=== PATIENT | female | born 1995 | race African-American/Black ===

== ENCOUNTER 2017-03-16 01:43 | Emergency (ER) | payer OTHER ==
--- NOTE | 2017-03-16 02:11 | PDOC ---
History of Present Illness - History of Present Illness Initial Comments: 03/16/17 02:48 The patient is a 21 year old female, with a significant past medical history of psychophrenia who presents to the emergency department with 3 day history of insomnia, restlessness, and neck stiffness. The patient denies chest pain, shortness of breath, headache and dizziness. Denies fever, chills, nausea, vomit, diarrhea and constipation. Denies dysuria, frequency, urgency and hematuria. Allergies: NKDA Past surgical history: Denies Social history: Denies 03/16/17 02:48 <Rodo Mace - Last Filed: 03/16/17 02:55> <Nicole Rocha - Last Filed: 03/16/17 19:52> - General Chief Complaint: Head/Neck problem Stated Complaint: STIFFNESS OF NECK/TREMORS Time Seen by Provider: 03/16/17 01:54 Past History - Past Medical History Psychiatric Problems: Yes - Immunization History Immunization Up to Date: No - Psycho/Social/Smoking Cessation Hx Anxiety: No Suicidal Ideation: No Smoking History: Never smoked Have you smoked in the past 12 months: No Hx Alcohol Use: No Substance Use Type: None <Rodo Mace - Last Filed: 03/16/17 02:55> <Nicole Rocha - Last Filed: 03/16/17 19:52> - Past Medical History Allergies/Adverse Reactions: Allergies Allergy/AdvReac Type Severity Reaction Status Date / Time No Known Allergies Allergy Verified 03/16/17 01:50 Home Medications: Ambulatory Orders Haloperidol [Haldol -] 10 mg PO DAILY 03/16/17 Review of Systems - Review of Systems Comments:: 03/16/17 02:48 GENERAL/CONSTITUTIONAL: +Insomnia for 3 days with generalized stiffness. Minimally responsive. No fever or chills. No weakness. HEAD, EYES, EARS, NOSE AND THROAT: No change in vision. No ear pain or discharge. No sore throat. CARDIOVASCULAR: No chest pain or shortness of breath RESPIRATORY: No cough, wheezing, or hemoptysis. GASTROINTESTINAL: No nausea, vomiting, diarrhea or constipation. GENITOURINARY: No dysuria, frequency, or change in urination. MUSCULOSKELETAL: No joint or muscle swelling or pain. No neck or back pain. SKIN: No rash NEUROLOGIC: No headache, vertigo, loss of consciousness, or change in strength/ sensation. ENDOCRINE: No increased thirst. No abnormal weight change HEMATOLOGIC/LYMPHATIC: No anemia, easy bleeding, or history of blood clots. ALLERGIC/IMMUNOLOGIC: No hives or skin allergy. 03/16/17 02:49 <Rodo Mace - Last Filed: 03/16/17 02:55> *Physical Exam - Vital Signs Last Vital Signs Temp Pulse Resp BP Pulse Ox 98 F 82 18 111/70 99 03/16/17 01:47 03/16/17 01:47 03/16/17 01:47 03/16/17 01:47 03/16/17 01:47 - Physical Exam Comments: 03/16/17 02:48 GENERAL: +Flat affect. Some trembling of extremities. Awake, alert, and fully oriented, in no acute distress HEAD: No signs of trauma, normocephalic, atraumatic EYES: PERRLA, EOMI, sclera anicteric, conjunctiva clear ENT: Auricles normal inspection, hearing grossly normal, nares patent, oropharynx clear without exudates. Moist mucosa NECK: +Stiffness noted. Normal ROM, supple, no lymphadenopathy, JVD, or masses LUNGS: No distress, speaks full sentences, clear to auscultation bilaterally HEART: Regular rate and rhythm, normal S1 and S2, no murmurs, rubs or gallops, peripheral pulses normal and equal bilaterally. ABDOMEN: Soft, nontender, normoactive bowel sounds. No guarding, no rebound. No masses EXTREMITIES: Normal inspection, Normal range of motion, no edema. No clubbing or cyanosis. NEUROLOGICAL: Cranial nerves II through XII grossly intact. Normal speech, normal gait, no focal sensorimotor deficits SKIN: Warm, Dry, normal turgor, no rashes or lesions noted. 03/16/17 02:50 <Rodo Mace - Last Filed: 03/16/17 02:55> - Vital Signs Last Vital Signs Temp Pulse Resp BP Pulse Ox 98 F 82 18 111/70 99 03/16/17 01:47 03/16/17 01:47 03/16/17 01:47 03/16/17 01:47 03/16/17 01:47 <Nicole Rocha - Last Filed: 03/16/17 19:52> ED Treatment Course - Medications Given in the ED: ED Medications Discontinued Medications Generic Name Dose Route Start Last Admin Trade Name Valentin PRN Reason Stop Dose Admin Benztropine Mesylate 1 mg 03/16/17 02:18 03/16/17 02:45 Cogentin - PO 03/16/17 02:19 1 mg ONCE ONE Administration Diphenhydramine HCl 25 mg 03/16/17 02:18 03/16/17 02:45 Benadryl - PO 03/16/17 02:19 25 mg ONCE ONE Administration Diphenhydramine HCl 25 mg 03/16/17 02:35 03/16/17 02:45 Benadryl - PO 03/16/17 02:36 25 mg ONCE ONE Administration <Nicole Rocha - Last Filed: 03/16/17 19:52> Medical Decision Making - Medical Decision Making 03/16/17 02:51 Patient presents with classical symptoms of haloperidol side effects of restlessness, insomnia, and stiffness. Given benadryl 50mg and cogentin 1mg for relief as well as home prescription for 50mg benadryl daily. Suggested to take 1 /2 current dose of haloperidol and follow-up with psychiatrist. <Rodo Mace - Last Filed: 03/16/17 02:55> - Medical Decision Making 03/16/17 19:48 Pt comes with dystonic reaction due to 10mg haldol that she was recently started on at [facility]; pt has no psychiatrist to follow her. She has no other complaints. Mom is concerned that her daughter is not sleeping and that she is not her usual vibrant self and feels that the high dose of haldol is causing personality change. Pt will be treated with cogentin and benadryl for the dystonia and mom was asked to adjust the dose of haldol and get a psychiatrist by calling insurance and making an appointment or by visiting a clinic. Pt is stable for discharge. Exam normal. vitals normal. No psychosis, voiolence or suicidal ideations. She is calm and stable and awake and alert. <Nicole Rocha - Last Filed: 03/16/17 19:52> *DC/Admit/Observation/Transfer - Attestations Physician Attestion: 03/16/17 02:45 I, Dr. Rodo Mace, attest that this document has been prepared under my direction and personally reviewed by me in its entirety. I further attest, that it accurately reflects all work, treatment, procedures and medical decision -making performed by me. <Rodo Mace - Last Filed: 03/16/17 02:55> <Nicole Rocha - Last Filed: 03/16/17 19:52> Diagnosis at time of Disposition: Insomnia Qualifiers: Insomnia type: drug-induced Qualified Code(s): F19.982 - Other psychoactive substance use, unspecified with psychoactive substance-induced sleep disorder Drug reaction Qualifiers: Encounter type: initial encounter Qualified Code(s): T88.7XXA - Unspecified adverse effect of drug or medicament, initial encounter - Discharge Dispostion Disposition: HOME - Referrals Referrals: Sarina Lomax MD [Staff Physician] - - Patient Instructions Additional Instructions: Please return to ER if any exacerbation of symptoms.
[2017-03-16] MEDS ORDERED: BENZTROPINE MESYLATE 1 MG TABLET (FP) PO ONE (02:18)
[2017-03-16] MEDS ORDERED: diphenhydrAMINE HCL 25 MG CAPSULE (FP) PO ONE ×3 (02:18→02:37)
[2017-03-16 02:56] VITALS: BP 111/70; PULSE 82; TEMP 98; BMI 31.1
== END 2017-03-16 03:00 | disposition home or self-care (01) ==
LOC: JER 01:43
DX: G47.00 Insomnia, unspecified (principal); M43.6 Torticollis; R46.1 Bizarre personal appearance; T43.4X5A Adverse effect of butyrophenone and thiothixene neuroleptics, initial encounter; Y92.039 Unspecified place in apartment as the place of occurrence of the external cause
CPT/HCPCS: 99283-25

== ENCOUNTER 2017-03-24 15:13 | Emergency (ER) | payer OTHER ==
[2017-03-24 15:20] VITALS: BP 141/74; PULSE 77; TEMP 98.5; BMI 30.2
[2017-03-24] MEDS ORDERED: LORazepam 1 MG TABLET PO ONE (16:55)
[2017-03-24] MEDS ORDERED: LORazepam 0.5 MG TABLET ONE (16:59)
--- NOTE | 2017-03-24 17:01 | PDOC ---
History of Present Illness - General Chief Complaint: Psychiatric Stated Complaint: RX REFILL Time Seen by Provider: 03/24/17 15:49 History Source: Patient Exam Limitations: No Limitations - History of Present Illness Initial Comments: My chief complaint: Extreme restlessness and anxiety History of present illness: She is a 21-year-old female with a history of paranoid schizophrenia today with her mother due to patient having restlessness and anxiety. Patient had been hospitalized according to mother 2 weeks ago at [facility] and has a diagnosis of paranoid Schizophrenia and had received an injection of Haldol Decanoate, patient was seen at [facility] on 03/17/2017 due to symptoms EPS by Dr. Javed Howard and was given a prescription for Cogentin 1 mg daily and diphenhydramine 50 mg hours sleep and lorazepam 1 mg twice a day for 5 days. Patient ran out of lorazepam 2 days ago and has become extremely restless and anxious. Patient no longer has any rigidity of extremities or any tremors. Pt. denies any auditory or visual hallucinations. patient denies that she wants to hurt herself or anyone else. Patient and mother deny the patient has been aggressive or agitated just restless and anxious. She denies any suicide attempts. Patient just kept saying "I can't stand feeling this way". Patient denies feeling that anyone is out to get her or that she is getting any messages from any TV or anything. Denies any chance of . Denies rigidity. Has been able to sleep. Timing/Duration: getting worse (for 2 days) Severity: moderate Associated Symptoms: anxiety (with restlessness) Past History - Past Medical History Allergies/Adverse Reactions: Allergies No Known Allergies Allergy (Verified 03/24/17 15:17) Home Medications: Ambulatory Orders Haloperidol [Haldol -] 10 mg PO DAILY 03/16/17 Lorazepam [Ativan] 1 mg PO BID PRN #5 tablet MDD 2 mg 03/24/17 Psychosocial History: Yes: schizophrenia (paranoid ) - Immunization History Immunization Up to Date: Yes - Social History Smoking Status: Never smoked *Review of Systems - Review of Systems Able to Perform ROS?: Yes Constitutional: No: Symptoms Reported HEENTM: No: Symptoms Reported Respiratory: No: Symptoms reported Cardiac (ROS): No: Symptoms Reported ABD/GI: No: Symptoms Reported : No: Symptoms Reported Musculoskeletal: No: Symptoms Reported Integumentary: No: Symptoms Reported Neurological: Yes: Other (restlessness, akathesia ) Psychiatric: Yes: Anxiety, Other (restlessness) *Physical Exam - Vital Signs Last Vital Signs Temp Pulse Resp BP Pulse Ox 98.5 F 77 16 141/74 99 03/24/17 15:17 03/24/17 15:17 03/24/17 15:17 03/24/17 15:17 03/24/17 15:17 - Physical Exam General Appearance: Yes: Appropriately Dressed HEENT: positive: EOMI, CHANDNI Respiratory/Chest: positive: Lungs Clear, Normal Breath Sounds. negative: Chest Tender, Respiratory Distress Cardiovascular: positive: Regular Rhythm, Regular Rate, S1, S2 Musculoskeletal: positive: Normal Inspection Extremity: positive: Normal Capillary Refill, Normal Inspection, Normal Range of Motion, Other (no rigidity all extremities) Integumentary: positive: Normal Color, Swelling Neurologic: positive: Fully Oriented, Alert, Normal Response, Respond to painful stimul, Responsive, Finger to Nose, Other. negative: Numbness, Sensory Deficit Plan - Critical Care Time Comments: 03/24/17 17:27 She is a 21-year-old female with a history of paranoid schizophrenia today with her mother due to patient having restlessness and anxiety. Patient had been hospitalized according to mother 2 weeks ago at [facility] and has a diagnosis of paranoid Schizophrenia and had received an injection of Haldol Decanoate, patient was seen at [facility] on 03/17/2017 due to symptoms EPS by Dr. Javed Howard and was given a prescription for Cogentin 1 mg daily and diphenhydramine 50 mg hours sleep and lorazepam 1 mg twice a day for 5 days. Patient ran out of lorazepam 2 days ago and has become extremely restless and anxious. Patient no longer has any rigidity of extremities or any tremors. Pt. denies any auditory or visual hallucinations. patient denies that she wants to hurt herself or anyone else. Patient and mother deny the patient has been aggressive or agitated just restless and anxious. She denies any suicide attempts. Patient just kept saying "I can't stand feeling this way". Patient denies feeling that anyone is out to get her or that she is getting any messages from any TV or anything. Akathesia anxiety PLAN: She went to continue on Cogentin and diphenhydramine as previously ordered by Dr. Burt medically at [facility] on 03/17/2017 Will renew lorazepam 1 mg twice a day 5 tablets pt to see here psychiatrist this friday at [facility] Dr. Becker Lorazepam 1 mg giving here now call made to [facility] ER spoke with attending Dr. Javed Howard who saw pt. on 03/17/17 he had ordered cogentin 1 mg daily, benadryl 50 mg HS and lorazepam 1 mg bid # 10 tabs *DC/Admit/Observation/Transfer Diagnosis at time of Disposition: Anxiety, Drug-induced akathisia - Discharge Dispostion Disposition: HOME Condition at time of disposition: Stable - Prescriptions Prescriptions: Lorazepam [Ativan] 1 mg PO BID PRN #5 tablet MDD 2 mg PRN Reason: Anxiety - Patient Instructions Additional Instructions: Follow up with your psychiatrist this Friday as previously scheduled by your mother Return to emergency room if symptoms worsen or new symptoms develop Patient and her mother voiced understanding of discharge instructions and all questions were answered Continue taking medication as prescribed by emergency room doctor on 03/17/2017
== END 2017-03-24 17:27 | disposition home or self-care (01) ==
LOC: JERFT 15:13
DX: F41.8 Other specified anxiety disorders (principal); G25.71 Drug induced akathisia; F20.0 Paranoid schizophrenia
CPT/HCPCS: 99281-25

== ENCOUNTER 2020-08-01 10:11 | Emergency (ER) | payer OTHER ==
[2020-08-01 10:30] VITALS: BP 132/80; PULSE 92; TEMP 96.6; BMI 43.1
== END 2020-08-01 11:16 | disposition home or self-care (01) ==
LOC: JERFT 10:11
DX: M54.2 Cervicalgia (principal)
CPT/HCPCS: 99282-25

== ENCOUNTER 2021-12-04 11:40 | Emergency (ER) | payer OTHER ==
[2021-12-04 12:03] VITALS: BP 119/77; PULSE 87; TEMP 98.3; BMI 38.4
[2021-12-04] MEDS ORDERED: SODIUM CHLORIDE 0.9% 500 ML INFUS.BAG IV ONE (13:19)
[2021-12-04] MEDS ORDERED: FLUCONAZOLE 150 MG TABLET PO ONE (14:20)
[2021-12-04 14:22] LABS: BASO % 0.8 % (0-2.0); EOS % 6.6 % (0-4.5); HEMATOCRIT 38.5 % (32.4-45.2); HEMOGLOBIN 13.1 GM/dL (10.7-15.3); LYMPH % 35.7 % (8-40); MCH 29.7 pg (25.7-33.7); MCHC 33.9 g/dl (32.0-36.0); MEAN CELL VOLUME 87.5 fl (80-96); MEAN PLT VOLUME 8.2 fl (7.5-11.1); MONO % 5.3 % (3.8-10.2); NEUT % 51.6 % (42.8-82.8); PLATELET COUNT 333 10^3/uL (134-434); RDW 12.8 % (11.6-15.6); WHITE BLOOD COUNT 6.3 K/mm3 (4.0-10.0)
[2021-12-04 14:26] LABS: HCG,QUALITATIVE URINE Negative
[2021-12-04 14:27] LABS: EPI CELLS 31 /uL (0-25.1); HYALINE CASTS 9 /uL (0-3.1); URINE APPEARANCE CLEAR; URINE BACTERIA 2614 /uL (0-1359); URINE BILIRUBIN NEGATIVE (NEGATIVE); URINE COLOR DK YELLOW; URINE GLUCOSE (UA) NEGATIVE (NEGATIVE); URINE KETONE TRACE (NEGATIVE); URINE LEUK ESTERASE TRACE (NEGATIVE); URINE NITRITE NEGATIVE (NEGATIVE); URINE PROTEIN 1+ (NEGATIVE); URINE WBC 57 /uL (0-25.8)
[2021-12-04 14:42] LABS: ALBUMIN 3.4 g/dl (3.4-5.0); BLOOD UREA NITROGEN 11.6 mg/dL (7-18); CALCIUM 9.4 mg/dL (8.5-10.1)
[2021-12-04 14:45] LABS: CREATININE 0.8 mg/dL (0.55-1.3)
[2021-12-04 14:47] LABS: BILIRUBIN,TOTAL 0.4 mg/dL (0.2-1); TOT PROT 7.5 g/dl (6.4-8.2)
[2021-12-04 15:10] LABS: URINE RBC 72 /uL (0-23.9)
== END 2021-12-04 15:20 | disposition home or self-care (01) ==
LOC: JERFT 11:40
DX: B37.3 Candidiasis of vulva and vagina (principal); L84 Corns and callosities; L98.8 Other specified disorders of the skin and subcutaneous tissue
CPT/HCPCS: 36415; 80053; 81003; 84703; 85025; 86780; 87086; 87491; 87591; 99284-25